=== PATIENT | male | born 1945 | race Caucasian/White ===

== ENCOUNTER → 2018-01-19 16:12 | Outpatient (CLI) | payer MEDICARE, OTHER, SELFPAY | PROVIDERS: Family Provider Internal Medicine; PCP Internal Medicine; Visit Provider Otolaryngology Otolaryngology/Facial Plastic Surgery | DX: J32.9 Chronic sinusitis, unspecified (principal); J02.9 Acute pharyngitis, unspecified | CPT/HCPCS: 87070; 87077; 87186; 87205 ==

== ENCOUNTER → 2018-02-09 15:41 | Outpatient (CLI) | payer MEDICARE, OTHER, SELFPAY | PROVIDERS: Family Provider Internal Medicine; PCP Internal Medicine; Visit Provider Otolaryngology Otolaryngology/Facial Plastic Surgery | DX: J32.9 Chronic sinusitis, unspecified (principal) | CPT/HCPCS: 87070; 87077; 87186; 87205 ==

== ENCOUNTER → 2018-02-25 16:21 | Outpatient (CLI) | payer MEDICARE, OTHER, SELFPAY ==
--- NOTE | 2018-02-25 16:26 | CT_ITS ---
STUDY: CT MAXILLOFACIAL SINUSES REASON FOR EXAM: Male, 72 years old. Congestion RADIATION DOSAGE (If Supplied By Facility): CTDIvol = ( 33.06 ) mGy, DLP = ( 821.45 ) mGycm TECHNIQUE: The patient was scanned in a multi detector CT scanner. High resolution axial imaging was performed without the administration of intravenous contrast material. Sagittal and coronal images were reconstructed. Individualized dose optimization techniques were used for this CT. COMPARISON: None. FINDINGS: FRONTAL SINUSES: There is minimal mucosal thickening in both frontal sinuses. The nasofrontal ducts are patent. ETHMOIDAL SINUSES: The ethmoid air cells are well-aerated. MAXILLARY SINUSES: There is marked mucosal thickening in the right maxillary sinus. There is minimal mucosal thickening in the left maxillary sinus. The maxillary ostia and infundibula are patent. SPHENOIDAL SINUSES: The sphenoid sinuses are well-aerated. The sphenoethmoidal recesses are patent. The middle turbinates are unremarkable. The inferior turbinates are unremarkable. There is minimal nasal septal deviation to the left. The nasal airways are patent. The visualized osseous structures are unremarkable. The mastoid air cells are well-aerated. CT/Sinus/Facial Bone IMPRESSION: There is mucosal thickening in both maxillary sinuses, right greater than left, consistent with chronic sinusitis. The ostiomeatal units are patent. Electronically Signed: Nicolle Woodard MD at 19:56 EDT Tel Direct: [phone], Service support ,
== END ==
PROVIDERS: Family Provider Internal Medicine; PCP Internal Medicine; Visit Provider Otolaryngology Otolaryngology/Facial Plastic Surgery
DX: J32.9 Chronic sinusitis, unspecified (principal)
CPT/HCPCS: 70486

== ENCOUNTER → 2018-03-25 10:43 | Outpatient (CLI) | payer MEDICARE, OTHER, SELFPAY ==
--- NOTE | 2018-03-25 17:23 | STRESSREP ---
Stress Test Report Treadmill EKG results: Resting EKG sinus bradycardia, normal intervals, no evidence of previous myocardial infarction. Treadmill EKG: Patient exercise according to Benji protocol for 2 minutes and 0 seconds achieving a maximum workload of 4.60 METS. Resting heart rate was initially 56 bpm and rosana to maximum 93 beats a minute which represents 63% of the maximal age-predicted heart rate. Resting blood pressure was 160/82 and rosana to maximum of 212/82. Test was terminated due to fatigue, dyspnea, and patient was unable to keep up on the treadmill. During exercise the patient had minimal heart rate increase. Patient had no dynamic EKG changes to suggest ischemia. Conclusions normal submaximal treadmill EKG. Negative for ischemia by EKG changes. No anginal symptoms noted. Poor exercise capacity for age. Hypertensive blood pressure response to exercise. No complications. Consider alternative mode of testing if coronary ischemia is strongly suspected. Dyspnea on exertion may be an anginal equivalent.
== END ==
PROVIDERS: Family Provider Internal Medicine; PCP Internal Medicine; Visit Provider Internal Medicine Cardiovascular Disease
DX: Z01.810 Encounter for preprocedural cardiovascular examination (principal); R06.09 Other forms of dyspnea; R06.02 Shortness of breath
CPT/HCPCS: 93017